=== PATIENT | male | born 1970 | race Caucasian/White ===

== ENCOUNTER 2017-03-18 06:14 | Emergency (ER) | payer BC ==
[2017-03-18 06:20] VITALS: RESP 16; TEMP 97.5; O2SAT 97
--- NOTE | 2017-03-18 07:23 | EDPHY ---
H & P Time Seen by Provider: 03/18/17 07:02 HPI/ROS: CHIEF COMPLAINT: High blood pressure HISTORY OF PRESENT ILLNESS: Patient is a 46-year-old male who presents to the emergency department concerned about his blood pressure. Patient states that last week he was back packing in [place]. At the end of his backpacking trip P developed some mild chest pain and dizziness. The patient states that he thinks his chest pain was "structural" from caring his heavy backpack. He also thinks he may have been dizzy due to dehydration. He states he had developed diarrhea while in [place]. After returning home he went to urgent care. There he had a reportedly normal EKG. No laboratory studies were performed. Since that time he has had no further diarrhea or abdominal pain. He has had no further episodes of chest pain, shortness of breath or dizziness. He has been tracking his blood pressure and it is running high. Today he awoke in his blood pressure is 180/120. He was concerned and came to the emergency department. Patient states that he drinks approximately 6-8 oz of alcohol daily. REVIEW OF SYSTEMS: My complete review of systems is negative except as mentioned in the HPI. Past Medical/Surgical History: Denies Past surgical history: Denies Social history: Drinks alcohol regularly Smoking Status: Never smoked Physical Exam: Vitals noted GENERAL: Well-appearing, in no acute distress, alert. HEENT: Eyes normal to inspection, normal pharynx, no signs of dehydration. NECK: No thyromegaly, no lymphadenopathy, supple. RESPIRATORY: Clear to auscultation bilaterally, no rales, rhonchi or wheezing. CVS: Regular rate and rhythm, no rubs, murmurs, or gallops. ABDOMEN: Soft, nontender, nondistended, no organomegaly. BACK: Normal to inspection, no CVA tenderness. SKIN: Normal color, no rash, warm, dry. No pallor. EXTREMITIES: No pedal edema, no calf tenderness, no Homans sign or cords, no joint swelling. NEURO/PSYCH: Alert and oriented x3, normal mood and affect, normal motor sensory exam. No obvious cranial nerve deficit. Constitutional: Initial Vital Signs Temperature (C) 36.4 C 03/18/17 06:16 Heart Rate 52 L 03/18/17 06:16 Respiratory Rate 16 03/18/17 06:16 Blood Pressure 157/109 H 03/18/17 06:16 O2 Sat (%) 97 03/18/17 06:16 O2 Delivery Mode Room Air Allergies/Adverse Reactions: No Known Allergies Allergy (Unverified 03/18/17 06:16) Home Medications: Medication Instructions Recorded NK [No Known Home Meds] 03/18/17 Medical Decision Making ED Course/Re-evaluation: In the emergency department I discussed possible etiologies with the patient. I answered all his questions. An IV was placed. Laboratory studies and EKG were ordered. It is noted the patient's blood pressure on arrival was 157/109. EKG: Sinus rhythm at 50. Normal axis. Normal interval. Left ventricular hypertrophy. No ST or T-wave abnormality. Patient's CBC and chemistry were unremarkable. I discussed the results with the patient. Answered all his questions. He is aware he needs close follow-up with his primary care physician. He will return with worsening symptoms. Differential Diagnosis: My differential includes but is not limited to ACS, acute AR, pulmonary embolus , hypertension, hypertensive emergency, hypertensive urgency, dehydration, electrolyte abnormality, sugar abnormality, dissection, aneurysm - Data Points Laboratory Results: Laboratory Results 03/18/17 07:44 03/18/17 07:44 03/18/17 03/18/17 07:44 07:44 WBC 4.92 10^3/uL 10^3/uL (3.80-9.50) RBC 4.56 10^6/uL 10^6/uL (4.40-6.38) Hgb 14.7 g/dL g/dL (13.7-17.5) Hct 43.1 % % (40.0-51.0) MCV 94.5 fL fL (81.5-99.8) MCH 32.2 pg pg (27.9-34.1) MCHC 34.1 g/dL g/dL (32.4-36.7) RDW 13.2 % % (11.5-15.2) Plt Count 322 10^3/uL 10^3/uL (150-400) MPV 9.3 fL fL (8.7-11.7) Neut % (Auto) 46.0 % % (39.3-74.2) Lymph % (Auto) 35.0 % % (15.0-45.0) [place] % (Auto) 15.2 % H % (4.5-13.0) Eos % (Auto) 2.6 % % (0.6-7.6) Baso % (Auto) 1.2 % % (0.3-1.7) Nucleat RBC Rel Count 0.0 % % (0.0-0.2) Absolute Neuts (auto) 2.26 10^3/uL 10^3/uL (1.70-6.50) Absolute Lymphs (auto) 1.72 10^3/uL 10^3/uL (1.00-3.00) Absolute Monos (auto) 0.75 10^3/uL 10^3/uL (0.30-0.80) Absolute Eos (auto) 0.13 10^3/uL 10^3/uL (0.03-0.40) Absolute Basos (auto) 0.06 10^3/uL 10^3/uL (0.02-0.10) Absolute Nucleated RBC 0.00 10^3/uL 10^3/uL (0-0.01) Immature Gran % 0.0 % % (0.0-1.1) Immature Gran # 0.00 10^3/uL 10^3/uL (0.00-0.10) Sodium 141 mEq/L mEq/L (134-144) Potassium 4.2 mEq/L mEq/L (3.5-5.2) Chloride 101 mEq/L mEq/L (97-110) Carbon Dioxide 27 mEq/l mEq/l (22-31) Anion Gap 13 mEq/L mEq/L (8-16) BUN 13 mg/dL mg/dL (7-23) Creatinine 0.8 mg/dL mg/dL (0.7-1.3) Estimated GFR > 60 Glucose 90 mg/dL mg/dL (70-100) Calcium 10.0 mg/dL mg/dL (8.5-10.4) Troponin I < 0.012 ng/mL ng/mL (0.000-0.034) Medications Given: Discontinued Medications Aspirin (Aspirin) 324 mg PO EDNOW ONE Stop: 03/18/17 07:36 Last Admin: 03/18/17 08:03 Dose: 324 mg Departure - Departure Disposition: Home, Routine, Self-Care Clinical Impression: Hypertension Condition: Good Instructions: Hypertension (ED) Additional Instructions: Return with increasing chest pain, shortness of breath, headache, weakness, numbness or any other concerns. You need close follow-up with your primary care to evaluate your elevated blood pressure. Referrals: LORETO PANDEY [Non Staff Provider (MD)] - 2-3 days, call for appt.
[2017-03-18] MEDS ORDERED: ASPIRIN 81 MG CHEWABLE TAB PO ONE (07:35)
--- NOTE | 2017-03-18 07:48 | CPEKG ---
Heart Rate: 50 RR Interval: 1200 P-R Interval: 204 QRSD Interval: 116 QT Interval: 460 QTC Interval: 420 P [place]: 74 QRS [place]: 49 T Wave [place]: 25 EKG Severity - ABNORMAL ECG - EKG Impression: SINUS RHYTHM EKG Impression: NONSPECIFIC INTRAVENTRICULAR CONDUCTION DELAY EKG Impression: PROBABLE LEFT VENTRICULAR HYPERTROPHY Electronically Signed By: Almita Deleon 18-Mar-2017 14:41:12
[2017-03-18 07:58] LABS: ADD DIFF? NO; ADD MORPH? NO; ADD SCAN? NO; ATYPICAL LYMPHOCYTE FLAG 10 (0-99); FRAGMENT RBC FLAG 0 (0-99); HEMATOCRIT 43.1 % (40.0-51.0); HEMOGLOBIN 14.7 g/dL (13.7-17.5); LEFT SHIFT FLG 0 (0-99); LIPEMIA HEMOLYSIS FLAG 90 (0-99); MEAN CELL HEMOGLOBIN 32.2 pg (27.9-34.1); MEAN CELL HEMOGLOBIN CONCENTR. 34.1 g/dL (32.4-36.7); MEAN CELL VOLUME 94.5 fL (81.5-99.8); MEAN PLATELET VOLUME 9.3 fL (8.7-11.7); PLATELET CLUMPS FLAG 0 (0-99); PLATELET COUNT 322 10^3/uL (150-400); RED BLOOD CELL COUNT 4.56 10^6/uL (4.40-6.38); RED CELL DISTRIBUTION WIDTH 13.2 % (11.5-15.2)
[2017-03-18 08:05] VITALS: BP 183/116; PULSE 51
[2017-03-18 08:06] LABS: ANION GAP 13 mEq/L (8-16); CARBON DIOXIDE 27 mEq/l (22-31); CHLORIDE 101 mEq/L (97-110); CREATININE 0.8 mg/dL (0.7-1.3); GLOMERULAR FILTRATION RATE > 60; GLUCOSE 90 mg/dL (70-100); POTASSIUM 4.2 mEq/L (3.5-5.2); SODIUM 141 mEq/L (134-144)
[2017-03-18 08:18] LABS: TROPONIN I < 0.012 ng/mL (0.000-0.034)
== END 2017-03-18 08:35 | disposition home or self-care (01) ==
DX: I10 Essential (primary) hypertension (principal)